=== PATIENT | female | born 1995 | race Caucasian/White ===

== ENCOUNTER 2021-04-10 00:54 | Emergency (ER) | payer BC ==
[~2021-04-10] VITALS: Ht 165.1 cm; Wt 56.7 kg
[2021-04-10] MEDS ORDERED: CLEOCIN HCL300 MG PO (02:47)
[2021-04-10] MEDS ORDERED: INTESTINEX680 M1 PO (02:47)
[2021-04-10] MEDS ORDERED: KETO10TA2 PO (02:47)
== END 2021-04-10 02:58 | disposition home or self-care (01) ==
LOC: ER 00:54
DX: L03.011 Cellulitis of right finger (principal)